=== PATIENT | male | born 1955 | race Caucasian/White ===

== ENCOUNTER 2024-11-04 08:29 | Emergency (ER) | payer MEDICARE ==
[~2024-11-04] VITALS: Ht 175.3 cm; Wt 79.4 kg
[2024-11-04] MEDS ORDERED: IBUP-1955 PO (09:23)
[2024-11-04] MEDS ORDERED: LIDO30AD10 TP (09:23)
[2024-11-04] MEDS ORDERED: METH4TAB17 PO (09:23)
[2024-11-04] MEDS ORDERED: KETOROLAC TROMETHAMINE 15 MG/ML VIAL ONE (09:40)
[2024-11-04] MEDS: KETOROLAC TROMETHAMINE 15 MG/ML VIAL IM ONE (09:48)
[2024-11-04 10:07] VITALS: BP 138/85; TEMP 98; O2SAT 99
== END 2024-11-04 10:07 | disposition home or self-care (01) ==
LOC: ER 08:35
DX: M54.41 Lumbago with sciatica, right side (principal); Z60.2 Problems related to living alone
CPT/HCPCS: 99283; 96372; J1885